=== PATIENT | male | born 1945 | race Caucasian/White ===

== ENCOUNTER → 2024-04-19 | Outpatient (CLI) | payer MEDICARE, SELFPAY ==
[2024-04-19 12:12] LABS: Parathyroid Hormone Intact 97.4 pg/ml (18.5-88.0)
[2024-04-19 12:18] LABS: Vitamin D 25 Hydroxy Total 27.7 ng/mL (7.3-40.2)
[2024-04-19 12:19] LABS: Free T4 (Free Thyroxine) 1.39 ng/dL (0.89-1.76); Phosphorous 2.8 mg/dL (2.4-5.1); Thyroid Stimulating Hormone 2.24 uIU/mL (0.55-4.78)
[2024-04-25 23:32] LABS: Albumin 3.8 g/dL (3.8-4.8); Alpha-1-Globulin 0.3 g/dL (0.2-0.3); Alpha-2-Globulin 0.6 g/dL (0.5-0.9); Beta-1-Globulin 0.4 g/dL (0.4-0.6); Beta-2-globulin 0.3 g/dL (0.2-0.5)
[2024-04-26 06:38] LABS: Protein, total, serum 6.4 g/dL (6.1-8.1); Thyroid Peroxidase Antibodies* <1 IU/mL (<9)
== END | disposition home or self-care (01) ==
LOC: COPL 10:58
PROVIDERS: PCP Family Medicine
DX: I12.9 Hypertensive chronic kidney disease with stage 1 through stage 4 chronic kidney disease, or unspecified chronic kidney disease (principal); N18.31 Chronic kidney disease, stage 3a; I51.9 Heart disease, unspecified; H93.8X9 Other specified disorders of ear, unspecified ear; M05.09 Felty's syndrome, multiple sites; M05.79 Rheumatoid arthritis with rheumatoid factor of multiple sites without organ or systems involvement; M05.9 Rheumatoid arthritis with rheumatoid factor, unspecified; M17.0 Bilateral primary osteoarthritis of knee; M53.2X2 Spinal instabilities, cervical region; N40.0 Benign prostatic hyperplasia without lower urinary tract symptoms; R53.83 Other fatigue; Z13.820 Encounter for screening for osteoporosis; Z79.899 Other long term (current) drug therapy; Z92.241 Personal history of systemic steroid therapy
CPT/HCPCS: 36415; 82306; 82310; 83735; 83970; 84100; 84155; 84165; 84439; 84443; 86376

== ENCOUNTER → 2024-07-17 | Outpatient (CLI) | payer MEDICARE, SELFPAY ==
[2024-07-17 11:37] LABS: Basophils % (Auto) 1 % (0-2.5); Eosinophils # (Auto) 0.2 Thou/mm3 (0.0-0.5); Eosinophils % (Auto) 4 % (0-10); Hematocrit 39.7 % (41.0-53.0); Hemoglobin 13.6 g/dL (13.5-16.0); Immature Granulocytes % (Auto) 1 % (0-0); Immature Granulocytes Auto 0.03 Thou/mm3 (0.00-0.00); Lymphocytes % (Auto) 17 % (10-50); Mean Corpuscular HGB Conc 34.3 g/dl (31.0-37.0); Mean Corpuscular Hemoglobin 31.4 pg (25.0-35.0); Mean Corpuscular Volume 92 fL (80-100); Monocytes # (Auto) 0.7 Thou/mm3 (0.0-0.8); Monocytes % (Auto) 12 % (0-12); Neutrophils # (Auto) 3.9 Thou/mm3 (1.8-7.7); Neutrophils % (Auto) 67 % (37-80); Nucleated Red Blood Cell % 0 /100 WBC (0); Platelet Count 278 Thou/mm3 (140-440); RDW Standard Deviation 50.4 fL (35.1-43.9); Red Blood Count 4.33 Miln/mm3 (4.50-5.90); White Blood Count 5.8 Thou/mm3 (3.8-10.6)
[2024-07-17 12:09] LABS: Sed Rate (ESR) 16 mm/hr (0-20)
[2024-07-17 12:10] LABS: Parathyroid Hormone Intact 97.1 pg/ml (18.5-88.0)
[2024-07-17 12:11] LABS: Alanine Aminotransferase 19 U/L (10-49); Albumin, Serum 4.1 gm/dL (3.4-4.8); Albumin/Globulin Ratio 1.5 (1.2-2.2); Alkaline Phosphatase 113 U/L (46-116); Anion Gap 6 (7-16); Aspartate Amino Transferase 24 U/L (0-34); BUN/Creatinine Ratio 14 Ratio (12-20); Bilirubin,Total 0.8 mg/dL (0.3-1.2); Blood Urea Nitrogen 18 mg/dL (9-23); C-Reactive Protein 0.5 mg/dL (0.0-0.9); Chloride 98 mMol/L (98-107); Creatinine (Component) 1.3 mg/dL (0.6-1.3); Globulin 2.7 gm/dL (2.3-3.5); Glucose 82 mg/dL (74-106); Osmolality,Calculated 259 (275-295); Potassium 5.1 mMol/L (3.4-5.1); Sodium 129 mMol/L (136-145); Total Protein 6.8 gm/dL (5.7-8.2); eGFR 57 See Note
[2024-07-17 12:15] LABS: Vitamin D 25 Hydroxy Total 88.7 ng/mL (7.3-40.2)
== END | disposition home or self-care (01) ==
LOC: COPL 10:10
PROVIDERS: PCP Internal Medicine; Referring Provider Internal Medicine; Visit Provider Internal Medicine
DX: M05.79 Rheumatoid arthritis with rheumatoid factor of multiple sites without organ or systems involvement (principal); N40.0 Benign prostatic hyperplasia without lower urinary tract symptoms; M81.0 Age-related osteoporosis without current pathological fracture; N18.31 Chronic kidney disease, stage 3a; M17.11 Unilateral primary osteoarthritis, right knee; I13.10 Hypertensive heart and chronic kidney disease without heart failure, with stage 1 through stage 4 chronic kidney disease, or unspecified chronic kidney disease; H93.8X9 Other specified disorders of ear, unspecified ear; M17.0 Bilateral primary osteoarthritis of knee; M53.2X2 Spinal instabilities, cervical region; M05.09 Felty's syndrome, multiple sites; R53.83 Other fatigue; Z79.899 Other long term (current) drug therapy; Z68.24 Body mass index [BMI] 24.0-24.9, adult; Z92.241 Personal history of systemic steroid therapy; Z79.83 Long term (current) use of bisphosphonates
CPT/HCPCS: 36415; 80053; 82306; 83970; 85025; 85652; 86140

== ENCOUNTER → 2024-09-10 | Outpatient (CLI) | payer MEDICARE, SELFPAY ==
[2024-09-10 09:27] LABS: Basophils % (Auto) 1 % (0-2.5); Eosinophils # (Auto) 0.3 Thou/mm3 (0.0-0.5); Eosinophils % (Auto) 5 % (0-10); Hematocrit 39.7 % (41.0-53.0); Hemoglobin 13.5 g/dL (13.5-16.0); Immature Granulocytes % (Auto) 0 % (0-0); Immature Granulocytes Auto 0.02 Thou/mm3 (0.00-0.00); Lymphocytes # (Auto) 1.2 Thou/mm3 (1.0-4.8); Lymphocytes % (Auto) 25 % (10-50); Mean Corpuscular Hemoglobin 31.1 pg (25.0-35.0); Mean Corpuscular Volume 92 fL (80-100); Monocytes # (Auto) 0.5 Thou/mm3 (0.0-0.8); Monocytes % (Auto) 11 % (0-12); Neutrophils # (Auto) 2.7 Thou/mm3 (1.8-7.7); Neutrophils % (Auto) 58 % (37-80); Nucleated Red Blood Cell % 0 /100 WBC (0); Platelet Count 300 Thou/mm3 (140-440); RDW Standard Deviation 47.5 fL (35.1-43.9); Red Blood Count 4.34 Miln/mm3 (4.50-5.90); White Blood Count 4.7 Thou/mm3 (3.8-10.6)
[2024-09-10 09:55] LABS: Glucose Estimated Average 103 mg/dL (80-131); Hemoglobin A1C 5.2 % Hgb (4.8-6.0)
[2024-09-10 09:59] LABS: Parathyroid Hormone Intact 147.4 pg/ml (18.5-88.0); Prostate Specific Antigen 3.84 ng/mL (0-4.00)
[2024-09-10 10:03] LABS: Alanine Aminotransferase 14 U/L (10-49); Albumin, Serum 4.2 gm/dL (3.4-4.8); Albumin/Globulin Ratio 1.4 (1.2-2.2); Alkaline Phosphatase 101 U/L (46-116); Anion Gap 10 (7-16); Aspartate Amino Transferase 27 U/L (0-34); BUN/Creatinine Ratio 17 Ratio (12-20); Bilirubin,Total 0.6 mg/dL (0.3-1.2); Blood Urea Nitrogen 19 mg/dL (9-23); C-Reactive Protein < 0.5 mg/dL (0.0-0.9); Calcium 8.3 mg/dL (8.3-10.6); Calcium (Corrected) 8.3 mg/dL (8.5-10.1); Carbon Dioxide 25.3 mMol/L (20.0-31.0); Cardiac Risk Estimate 2.5 RATIO (4.0-6.7); Chloride 99 mMol/L (98-107); Cholesterol 168 mg/dL (132-200); Creatinine (Component) 1.1 mg/dL (0.6-1.3); Glucose 90 mg/dL (74-106); HDL Cholesterol 68 mg/dL (40-60); LDL Cholesterol,Calculated 90 mg/dL (0-130); Osmolality,Calculated 270 (275-295); Potassium 4.4 mMol/L (3.4-5.1); Sodium 134 mMol/L (136-145); Thyroid Stimulating Hormone 2.37 uIU/mL (0.55-4.78); Total Protein 7.2 gm/dL (5.7-8.2); Triglycerides 52 mg/dL (30-150); eGFR > 60 See Note
[2024-09-10 10:12] LABS: Sed Rate (ESR) 48 mm/hr (0-20)
[2024-09-10 10:35] LABS: Hepatitis A Antibody IgM Non Reactive (Non React); Hepatitis B Core Antibody IgM Non Reactive (Non React); Hepatitis B Surface Antigen Non Reactive (Non React); Hepatitis C Antibody Non Reactive (Non React)
== END | disposition home or self-care (01) ==
LOC: COPL 08:15
PROVIDERS: Referring Provider Internal Medicine; Visit Provider Internal Medicine
DX: H93.8X9 Other specified disorders of ear, unspecified ear (principal); I12.9 Hypertensive chronic kidney disease with stage 1 through stage 4 chronic kidney disease, or unspecified chronic kidney disease; N18.31 Chronic kidney disease, stage 3a; I51.9 Heart disease, unspecified; M05.09 Felty's syndrome, multiple sites; M05.79 Rheumatoid arthritis with rheumatoid factor of multiple sites without organ or systems involvement; M17.0 Bilateral primary osteoarthritis of knee; M53.2X2 Spinal instabilities, cervical region; M81.0 Age-related osteoporosis without current pathological fracture; N40.0 Benign prostatic hyperplasia without lower urinary tract symptoms; R53.83 Other fatigue; Z13.820 Encounter for screening for osteoporosis; Z79.83 Long term (current) use of bisphosphonates; Z79.899 Other long term (current) drug therapy
CPT/HCPCS: 36415; 80053; 80061; 80074; 83036; 83970; 84153; 84443; 85025; 85652; 86140

== ENCOUNTER → 2024-11-11 | Outpatient (CLI) | payer MEDICARE, SELFPAY ==
[2024-11-11 09:35] LABS: Vitamin D 25 Hydroxy Total 53.6 ng/mL (7.3-40.2)
[2024-11-11 09:42] LABS: Basophils # (Auto) 0.0 Thou/mm3 (0.0-0.2); Basophils % (Auto) 1 % (0-2.5); Eosinophils # (Auto) 0.3 Thou/mm3 (0.0-0.5); Eosinophils % (Auto) 4 % (0-10); Hematocrit 39.6 % (41.0-53.0); Hemoglobin 14.1 g/dL (13.5-16.0); Immature Granulocytes Auto 0.03 Thou/mm3 (0.00-0.00); Lymphocytes # (Auto) 1.1 Thou/mm3 (1.0-4.8); Lymphocytes % (Auto) 16 % (10-50); Mean Corpuscular HGB Conc 35.6 g/dl (31.0-37.0); Mean Corpuscular Hemoglobin 32.1 pg (25.0-35.0); Mean Corpuscular Volume 90 fL (80-100); Monocytes # (Auto) 0.9 Thou/mm3 (0.0-0.8); Monocytes % (Auto) 13 % (0-12); Neutrophils # (Auto) 4.6 Thou/mm3 (1.8-7.7); Neutrophils % (Auto) 67 % (37-80); Nucleated Red Blood Cell # 0.00 Thou/mm3 (0.00-0.00); Nucleated Red Blood Cell % 0 /100 WBC (0); Platelet Count 309 Thou/mm3 (140-440); RDW Standard Deviation 50.1 fL (35.1-43.9); Red Blood Count 4.39 Miln/mm3 (4.50-5.90); White Blood Count 6.9 Thou/mm3 (3.8-10.6)
[2024-11-11 09:44] LABS: Alanine Aminotransferase 12 U/L (10-49); Albumin, Serum 4.1 gm/dL (3.4-4.8); Albumin/Globulin Ratio 1.5 (1.2-2.2); Alkaline Phosphatase 99 U/L (46-116); Anion Gap 11 (7-16); Aspartate Amino Transferase 23 U/L (0-34); BUN/Creatinine Ratio 9 Ratio (12-20); Bilirubin,Total 0.7 mg/dL (0.3-1.2); Blood Urea Nitrogen 11 mg/dL (9-23); C-Reactive Protein < 0.5 mg/dL (0.0-0.9); Calcium 9.1 mg/dL (8.3-10.6); Calcium (Corrected) 9.1 mg/dL (8.5-10.1); Carbon Dioxide 24.8 mMol/L (20.0-31.0); Chloride 94 mMol/L (98-107); Creatinine (Component) 1.2 mg/dL (0.6-1.3); Globulin 2.7 gm/dL (2.3-3.5); Glucose 101 mg/dL (74-106); Osmolality,Calculated 260 (275-295); Potassium 4.6 mMol/L (3.4-5.1); Sodium 130 mMol/L (136-145); Total Protein 6.8 gm/dL (5.7-8.2); eGFR > 60 See Note
[2024-11-11 09:58] LABS: Sed Rate (ESR) 30 mm/hr (0-20)
== END | disposition home or self-care (01) ==
LOC: COPL 08:16
PROVIDERS: PCP Internal Medicine
DX: H93.8X9 Other specified disorders of ear, unspecified ear (principal); I10 Essential (primary) hypertension; I51.9 Heart disease, unspecified; M05.09 Felty's syndrome, multiple sites; M05.79 Rheumatoid arthritis with rheumatoid factor of multiple sites without organ or systems involvement; M05.9 Rheumatoid arthritis with rheumatoid factor, unspecified; M17.0 Bilateral primary osteoarthritis of knee; M17.11 Unilateral primary osteoarthritis, right knee; M53.2X2 Spinal instabilities, cervical region; M81.0 Age-related osteoporosis without current pathological fracture; N18.31 Chronic kidney disease, stage 3a; N40.0 Benign prostatic hyperplasia without lower urinary tract symptoms; R53.83 Other fatigue; Z13.820 Encounter for screening for osteoporosis; Z68.23 Body mass index [BMI] 23.0-23.9, adult; Z68.24 Body mass index [BMI] 24.0-24.9, adult; Z68.25 Body mass index [BMI] 25.0-25.9, adult; Z79.83 Long term (current) use of bisphosphonates; Z79.899 Other long term (current) drug therapy; Z92.241 Personal history of systemic steroid therapy
CPT/HCPCS: 36415; 80053; 82306; 85025; 85652; 86140

== ENCOUNTER → 2024-11-12 | Outpatient (CLI) | payer MEDICARE, SELFPAY ==
[2024-11-12 08:55] LABS: Quantiferon-TB* See Sep Rpt
== END | disposition home or self-care (01) ==
PROVIDERS: PCP Internal Medicine
DX: H93.8X9 Other specified disorders of ear, unspecified ear (principal); I51.9 Heart disease, unspecified; M05.09 Felty's syndrome, multiple sites; M05.79 Rheumatoid arthritis with rheumatoid factor of multiple sites without organ or systems involvement; M05.9 Rheumatoid arthritis with rheumatoid factor, unspecified; M17.0 Bilateral primary osteoarthritis of knee; M53.2X2 Spinal instabilities, cervical region; M81.0 Age-related osteoporosis without current pathological fracture; I12.9 Hypertensive chronic kidney disease with stage 1 through stage 4 chronic kidney disease, or unspecified chronic kidney disease; N18.31 Chronic kidney disease, stage 3a; N40.0 Benign prostatic hyperplasia without lower urinary tract symptoms; R53.83 Other fatigue; Z13.820 Encounter for screening for osteoporosis; Z79.83 Long term (current) use of bisphosphonates; Z79.899 Other long term (current) drug therapy; Z92.241 Personal history of systemic steroid therapy
CPT/HCPCS: 86480